=== PATIENT | female | born 1950 | race Caucasian/White ===

== ENCOUNTER → 2023-05-19 10:11 | Outpatient (BNVA) | payer OTHER, MEDICAID, SELFPAY | PROVIDERS: Visit Provider Physician Assistant ==

== ENCOUNTER 2023-06-20 09:28 | Outpatient (AMB) | payer OTHER, MEDICAID, SELFPAY ==
--- NOTE | 2023-06-20 09:45 | A.SPINEOV_ITS ---
Intake Intake Visit Reasons: lumbar stenosis Intake Note: Ms. Garner is here today c/o low back pain. Brought MRI disc. 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 This is a 73-year-old female who presents to the office today for evaluation of a chronic low back pain going down her right leg into her outer thigh and her calf. She had a pre vious L4-5 decompression with facet screws done by Dr. Rashida lowery in 2012. The situation was complicated by a postoperative infection for which she was on long-term antibiotics. She eventually recovered from that and did reasonably well in terms of her leg pain and walking until about a year ago when she started developed chronic back pain going down into her right buttock, right lateral thigh and occasionally into her calf. She has been using oxycodone and Advil to get through. Any standing and walking is terribly painful will make her have to sit down. She has also been getting the pain at night however as well. She had an MRI showing degenerative disc disease and new right foraminal stenosis at L4. She was sent to us today for evaluation. She has not had any cortisone injections jet or any physical therapy. PMH: She is a diabetic, she is not sure why her A1c is, she believes it could be as high as 9. She has a history of back surgery as mentioned above, she also had a total knee replacement and that also got infected. She had a shoulder arthroscopy. She had a nonobstructive AL about 25-30 years ago which she was told was related distress but she did not require any intervention. The patient has anxiety, depression, GERD, high cholesterol Social hx: She is a nonsmoker Medications: Metformin, BuSpar, sertraline, omeprazole, inhaler, nasal spray Advil aspirin atorvastatin fluticasone lisinopril nystatin powder, propranolol, sertraline, sumatriptan, tizanidine Allergies: Allergy to Bactrim gives her GI upset, Augmentin and Ceftin Physical exam: Morbidly obese no acute distress she is awake alert oriented, she has difficulty standing up secondary to pain will hold her hand over her back when she is walking down the hallway, motor examination is intact, reflexes diminished bilaterally at the Achilles and the patella Imaging review: She had a lumbar MRI done in March of 2023 [facility] which shows multilevel degenerative disc disease, however she has a spondylolisthesis at L4-5 with right L4 foraminal narrowing. There is some moderate stenosis above at L3-4. There was a severely collapsed disc at L5-S1. We did standing flexion-extension x-rays here in the office today this showed transition from a grade 1 to a grade 2 or worse spondylolisthesis at L4-5 with standing. Impression: 73-year-old female presents to the office today with history of previous L4-5 decompression [place] [address] Field who has now developed a significant instability at L4-5 seen on x-rays, with MRI also showing foraminal stenosis at L4. Typically this is something that Dr. Schaeffer would treat with an L4-5 oblique lumbar interbody fusion. Although she has not done conservative treatment at this time, I do not think there is any value to this given the significant amount of instability we see. Before we can consider surgery however, she has a strong history of infections and she is not sure for diabetes is controlled at all and obviously we cannot bring her to the operating room until these things are clarified. I told her call her primary care physician Dr. Pastor office to have a preoperative evaluation and have her A1c checked. In the interim I will show her him images to Dr. Schaeffer and get back to her with the final surgical plan. Thank you for allowing us to care for your patient. The total time spent with this visit with this patient was 60 minutes reviewing history, physical exam, lumbar imaging review, and implementation of treatment plan or further diagnostic testing Joaquim Schaeffer MD,PhD [facility] Orders: Orders XR lumbar spine 4V min Today M54.16 - Radiculopathy, lumbar region Coding Level of Care Code New Pt Level 5 (56713) Diagnoses Lumbar radiculopathy M54.16
== END 2023-06-20 10:55 | disposition home or self-care (01) ==
PROVIDERS: PCP Family Medicine; Referring Provider Family Medicine; Visit Provider Physician Assistant
DX: M54.16 Radiculopathy, lumbar region (principal)
CPT/HCPCS: 99205

== ENCOUNTER 2023-06-20 09:28 | Outpatient (REF) | payer OTHER, MEDICAID, SELFPAY ==
--- NOTE | ~2023-06-20 | XR_ITS ---
EXAMINATION: XR LUMBOSACRAL SPINE WITH OBLIQUES CLINICAL INFORMATION: Lumbar radiculopathy. COMPARISON: None available. TECHNIQUE: AP, both oblique, and lateral views of the lumbar spine. Lateral view of the lumbosacral junction. FINDINGS: There is bony demineralization. At L4-L5, there is a 1.3 cm anterolisthesis. There are pedicular screws applied to the L5 posterior elements. There is marked disc space narrowing at L5-S1. No acute fracture is seen. The posterior elements are intact. The paravertebral soft tissues are unremarkable. XR/XR lumbar spine 4V min IMPRESSION: There is marked degenerative disc disease at L4-L5 and L5-S1. At L4-L5, there is a 1.3 cm anterolisthesis. Intact bilateral L5 pedicular screws are noted, without failure or loosening seen.
== END 2023-06-20 09:29 | disposition home or self-care (01) ==
LOC: HO.HOSX 09:28
PROVIDERS: PCP Family Medicine; Referring Provider Family Medicine; Visit Provider Physician Assistant
DX: M54.16 Radiculopathy, lumbar region (principal)
CPT/HCPCS: 72110

== ENCOUNTER 2023-10-21 15:08 | Outpatient (AMB) | payer OTHER, MEDICAID, SELFPAY ==
--- NOTE | 2023-10-21 15:13 | HO.SPINEOV ---
Intake Intake Visit Reasons: Follow up A1c Intake Note: Ms. Garner is here today to follow up Re: A1c. 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 This 73-year-old female who was previously seen by Joaquim Tinoco. She suffer from chronic low back pain and right lumbar radiculopathy. Imaging reviews a grade 2-3 L4-5 spondylolisthesis for which we offered her an oblique lumbar interbody fusion with a condition that her A1c needed to be controlled. Today she states her A1c is reduced to 7.9, which is a significant improvement from the high 9th where she was in. We scheduled surgery for 01/12/2024. This will give e time for the A1c to further decline. I described procedure, complications and answered the patient's questions. I spent 30 minutes in this consult to review imaging and discussing plan of care. Jh Schaeffer MD, PhD [facility] Trained Neurosurgeon Director, [facility] Coding Level of Care Code Est Pt Level 4 (63557) Diagnoses Acquired spondylolisthesis of lumbosacral region M43.17
== END 2023-10-21 16:02 | disposition home or self-care (01) ==
PROVIDERS: Visit Provider Neurological Surgery
DX: M43.17 Spondylolisthesis, lumbosacral region (principal)
CPT/HCPCS: 99214

== ENCOUNTER → 2023-10-21 15:08 | Outpatient (BNVA) | payer OTHER, MEDICAID, SELFPAY | PROVIDERS: PCP Family Medicine; Visit Provider Neurological Surgery ==

== ENCOUNTER → 2023-12-29 13:20 | Outpatient (BNV) | payer OTHER, MEDICAID, SELFPAY | PROVIDERS: Visit Provider Internal Medicine | DX: R94.31 Abnormal electrocardiogram [ECG] [EKG] (principal) | CPT/HCPCS: 93010 ==

== ENCOUNTER 2024-01-13 08:24 | Inpatient (IN) | payer OTHER, SELFPAY ==
--- NOTE | 2023-12-29 | ECG_ITS ---
Test Reason : preop Blood Pressure : / mmHG Vent. Rate : 065 BPM Atrial Rate : 065 BPM P-R Int : 178 ms QRS Dur : 068 ms QT Int : 400 ms P-R-T Axes : 013 -09 037 degrees QTc Int : 416 ms Normal sinus rhythm Cannot rule out Anterior infarct , age undetermined Abnormal ECG No previous ECGs available Referred By: Marcela Butts Electronically Signed By:DEBBIE DE ANDA
[2023-12-29 12:17] VITALS: BP 120/57; PULSE 64; RESP 20; O2SAT 97; BMI 42.6
--- NOTE | 2023-12-29 12:31 | P.CONAN_ITS ---
Documented by User: Marcela Butts NP 01/01/24 13:24 HPI - Anesthesia Eval Consult details Narrative: 73yo F for L4-5 Oblique Lumbar Interbody Fusion, 01/13/24 No recent illness No CP/SOB with very limited activity GERD. ppi prn, only takes couple times a month DM. FBS ~ 130s AR in 40's. No problems since. Sees cardiology prn only. Last visit 01/2023. Opiates daily Propranolol for migraine, no htn. PMFSH Active Problems Active Problems: All Active Problems (Updated 12/29/23 @ 12:08 by Nessa Liz RN) Acquired spondylolisthesis of lumbosacral region (Acute) Diabetes (Acute) Lumbar radiculopathy (Acute) Past Medical History Medical History (Updated 12/29/23 @ 12:59 by Nessa Liz RN) Bronchitis Fibromyalgia Arthritis Migraine Anxiety GERD (gastroesophageal reflux disease) Depression Elevated cholesterol Myocardial infarction Right lumbar radiculopathy Chronic low back pain Diabetes Surgical History Surgical History (Updated 12/29/23 @ 12:10 by Nessa Liz RN) Hx of tonsillectomy H/O colonoscopy Hx of cholecystectomy History of Hx of shoulder surgery Hx of total knee replacement Hx of decompressive lumbar laminectomy Social History Social History Household Members Other:: son Are you a primary nursing care attendant to a significant other at home: No Do you presently have visiting nurse or other home services: No Patient Tobacco Use Status: Never used Tobacco Use of substances other than those prescribed or required for medical reasons: No Have you been hit, kicked, punched, or otherwise hurt by someone within the past year? If so, by whom?: No Are you DNR?: No Advance Directives: No Advance Directives Information Provided: Yes Advance Directives on File: No Recently lost weight without trying: No Eating poorly because of decreased appetite: No Nutrition Risks: No Nutritional Risk Poor oral hygiene: No (missing molars-one upper and one lower left) Meds Allergies Allergy/AdvReac Type Severity Reaction Status Date / Time amoxicillin [From Augmentin] Allergy Intermediate Gastrointestinal Verified 12/29/23 12:11 Upset cefuroxime [From Ceftin] Allergy Intermediate Gastrointestinal Verified 12/29/23 12:11 Upset clavulanic acid Allergy Intermediate Gastrointestinal Verified 12/29/23 12:11 [From Augmentin] Upset vancomycin Allergy Nausea and Verified 01/13/24 09:25 Vomiting sulfamethoxazole AdvReac Intermediate Gastrointestinal Verified 12/26/23 10:19 [From Bactrim] Upset trimethoprim [From Bactrim] AdvReac Intermediate Gastrointestinal Verified 12/26/23 10:19 Upset Home Medications Medication Instructions Recorded Confirmed Last Taken Type albuterol sulfate 90 mcg/actuation 1 - 2 puff inhalation Q4-6H PRN 12/26/23 12/26/23 01/12/24 History aerosol inhaler Shortness Of Breath Or Wheezing atorvastatin 20 mg tablet 20 mg PO BEDTIME 12/26/23 12/29/23 01/12/24 History buspirone 15 mg tablet 15 mg PO TID 12/26/23 12/29/23 01/12/24 History fluticasone propionate 50 2 spray intranasal DAILY PRN Nasal 12/26/23 12/26/23 01/12/24 History mcg/actuation nasal Congestion spray,suspension insulin glargine 100 unit/mL (3 19 unit subcut QAM 12/26/23 12/29/23 01/13/24 History mL) subcutaneous pen (Lantus Solostar U-100 Insulin) metformin 1,000 mg tablet 1,000 mg PO BID 12/26/23 12/29/23 01/12/24 History nystatin 100,000 unit/gram topical 1 appl topical BID-TID 12/26/23 12/26/23 01/11/24 History powder (Nystop) omeprazole 20 mg capsule,delayed 20 mg PO DAILY PRN Acid Reflux 12/26/23 12/29/23 01/13/24 History release propranolol 40 mg tablet 40 mg PO BID 12/26/23 12/29/23 01/13/24 History sertraline 100 mg tablet 100 mg PO QPM 12/26/23 12/29/23 01/12/24 History ibuprofen 200 mg tablet (Advil) 600 mg PO Q6H PRN Pain 12/29/23 12/29/23 01/06/24 History oxycodone 5 mg tablet 5 mg PO BID 12/29/23 12/29/23 01/13/24 History Exam Height,Weight and Vital Signs: Height 4 ft 11 in Weight 95.708 kg Last Vital Signs Pulse 64 12/29/23 12:17 Resp 20 12/29/23 12:17 BP 120/57 L 12/29/23 12:17 Pulse Ox 97 12/29/23 12:17 O2 Del Method Room Air 12/29/23 12:17 Pertinent Lab Results Pertinent Lab Results: Lab Results 12/29/23 12/29/23 Range/Units 13:15 13:20 WBC 8.1 (4.8-10.8) X10*3/uL RBC 4.36 (4.20-5.50) X10*6/uL Hgb 12.9 (12.0-16.0) g/dl Hct 39.4 (37.0-47.0) % MCV 90.4 (80.0-98.0) fL MCH 29.6 (27.0-33.0) pg MCHC 32.7 (31.0-35.0) g/dl RDW 13.0 (11.0-16.0) % Plt Count 215 (160-400) X10*3/uL MPV 9.3 L (9.4-12.3) fL Absolute Nucleated RBC 0.000 (0.0-0.012) X10*3/uL Nucleated RBC % (auto) 0.0 (0.0-0.2) /100WBC Sodium 136 (135-145) mmol/L Potassium 5.3 H (3.3-5.1) mmol/L Chloride 106 (96-108) mmol/L Carbon Dioxide 25 (22-29) mmol/L Anion Gap 10 L (12-20) BUN 20 H (9-16) mg/dL Creatinine 0.90 (0.5-1.4) mg/dL Estim Creat Clear Calc 58.1 Estimated GFR > 60 Random Glucose 209 H (60-115) mg/dL Estimat Average Glucose 169 mg/dL Hemoglobin A1c % 7.5 H (<6.0) % Calcium 9.3 (8.4-10.2) mg/dL Blood Type A Positive Antibody Screen NEGATIVE Narrative Narrative: EKG 12/2023 Vent. Rate : 065 BPM Atrial Rate : 065 BPM P-R Int : 178 ms QRS Dur : 068 ms QT Int : 400 ms P-R-T Axes : 013 -09 037 degrees QTc Int : 416 ms Normal sinus rhythm Cannot rule out Anterior infarct , age undetermined Abnormal ECG No previous ECGs available Airway Mallampati Class: III TM Dist: >3cm Neck ROM: Limited Loose/Missing/Broken Teeth: Yes (missing molars) Heart: RRR Lungs: CTAB Assessment and Plan Assessment Anesthesia Assessment: Anesthesia Plan Discussed and PAT Visit Documented by User: Yimi Jewell MD 01/13/24 09:33 PMF Past Medical History Medical History (Updated 12/29/23 @ 12:59 by Nessa Liz RN) Bronchitis Fibromyalgia Arthritis Migraine Anxiety GERD (gastroesophageal reflux disease) Depression Elevated cholesterol Myocardial infarction Right lumbar radiculopathy Chronic low back pain Diabetes Functional capacity: wheelchair bound Family History Family history of problems with anesthesia: No Surgical History Surgical History (Updated 12/29/23 @ 12:10 by Nessa Liz RN) Hx of tonsillectomy H/O colonoscopy Hx of cholecystectomy History of Hx of shoulder surgery Hx of total knee replacement Hx of decompressive lumbar laminectomy History of Problems with Anesthesia: No Social History Social History Household Members Other:: son Are you a primary nursing care attendant to a significant other at home: No Do you presently have visiting nurse or other home services: No Patient Tobacco Use Status: Never used Tobacco Use of substances other than those prescribed or required for medical reasons: No Have you been hit, kicked, punched, or otherwise hurt by someone within the past year? If so, by whom?: No Are you DNR?: No Advance Directives: No Advance Directives Information Provided: Yes Advance Directives on File: No Recently lost weight without trying: No Eating poorly because of decreased appetite: No Nutrition Risks: No Nutritional Risk Poor oral hygiene: No (missing molars-one upper and one lower left) Meds Allergies Allergy/AdvReac Type Severity Reaction Status Date / Time amoxicillin [From Augmentin] Allergy Intermediate Gastrointestinal Verified 12/29/23 12:11 Upset cefuroxime [From Ceftin] Allergy Intermediate Gastrointestinal Verified 12/29/23 12:11 Upset clavulanic acid Allergy Intermediate Gastrointestinal Verified 12/29/23 12:11 [From Augmentin] Upset vancomycin Allergy Nausea and Verified 01/13/24 09:25 Vomiting sulfamethoxazole AdvReac Intermediate Gastrointestinal Verified 12/26/23 10:19 [From Bactrim] Upset trimethoprim [From Bactrim] AdvReac Intermediate Gastrointestinal Verified 12/26/23 10:19 Upset Home Medications Medication Instructions Recorded Confirmed Last Taken Type albuterol sulfate 90 mcg/actuation 1 - 2 puff inhalation Q4-6H PRN 12/26/23 12/26/23 01/12/24 History aerosol inhaler Shortness Of Breath Or Wheezing atorvastatin 20 mg tablet 20 mg PO BEDTIME 12/26/23 12/29/23 01/12/24 History buspirone 15 mg tablet 15 mg PO TID 12/26/23 12/29/23 01/12/24 History fluticasone propionate 50 2 spray intranasal DAILY PRN Nasal 12/26/23 12/26/23 01/12/24 History mcg/actuation nasal Congestion spray,suspension insulin glargine 100 unit/mL (3 19 unit subcut QAM 12/26/23 12/29/23 01/13/24 History mL) subcutaneous pen (Lantus Solostar U-100 Insulin) metformin 1,000 mg tablet 1,000 mg PO BID 12/26/23 12/29/23 01/12/24 History nystatin 100,000 unit/gram topical 1 appl topical BID-TID 12/26/23 12/26/23 01/11/24 History powder (Nystop) omeprazole 20 mg capsule,delayed 20 mg PO DAILY PRN Acid Reflux 12/26/23 12/29/23 01/13/24 History release propranolol 40 mg tablet 40 mg PO BID 12/26/23 12/29/23 01/13/24 History sertraline 100 mg tablet 100 mg PO QPM 12/26/23 12/29/23 01/12/24 History ibuprofen 200 mg tablet (Advil) 600 mg PO Q6H PRN Pain 12/29/23 12/29/23 01/06/24 History oxycodone 5 mg tablet 5 mg PO BID 12/29/23 12/29/23 01/13/24 History Exam Airway Mallampati Class: III TM Dist: <=3cm Neck ROM: Full Loose/Missing/Broken Teeth: No Assessment and Plan Final Anesthetic Review Family History of Problems with Anesthesia: No History of Problems with Anesthesia: No NPO: Yes ASA Class: III Final Preanesthetic Review: No Changes in Pt Med Stat, Meds/Allgs Chart Reviewed, Consent Obtained/Reviewed and Anes Risks/Benef Reviewed Patient Risk: Intermediate Procedure Risk: Intermediate Anesthetic Plan Anesthetic Plan: GA Disposition: Standard PACU
[2023-12-29 13:35] LABS: Hematocrit 39.4 % (37.0-47.0); Hemoglobin 12.9 g/dl (12.0-16.0); Mean Corpuscular HGB Conc 32.7 g/dl (31.0-35.0); Mean Corpuscular Hemoglobin 29.6 pg (27.0-33.0); Mean Corpuscular Volume 90.4 fL (80.0-98.0); Mean Platelet Volume 9.3 fL (9.4-12.3); Platelet Count 215 X10*3/uL (160-400); Red Blood Count 4.36 X10*6/uL (4.20-5.50); White Blood Count 8.1 X10*3/uL (4.8-10.8)
[2023-12-29 14:18] LABS: Anion Gap 10 (12-20); Blood Urea Nitrogen 20 mg/dL (9-16); Calcium 9.3 mg/dL (8.4-10.2); Carbon Dioxide 25 mmol/L (22-29); Chloride 106 mmol/L (96-108); Creatinine Clr Calc Pharmacy 58.1; Estimated Glomerular Filt Rate > 60; Glucose Random 209 mg/dL (60-115); Potassium 5.3 mmol/L (3.3-5.1); Sodium 136 mmol/L (135-145)
[2023-12-29 14:51] LABS: Estimated Average Glucose 169 mg/dL; Hemoglobin A1c % 7.5 % (<6.0)
[2024-01-13] VITALS (20 sets, daily range): BP systolic 121–164; BP diastolic 60–99; PULSE 68–83; RESP 10–20; TEMP 36.1–36.6; O2SAT 97–100; BMI 42.2; BMI 42.4
--- NOTE | ~2024-01-13 | FL_ITS ---
EXAMINATION: XR FLUOROSCOPY WITH IMAGES CLINICAL INFORMATION: L4-L5 oblique lumbar interbody fusion. COMPARISON: Lumbar spine radiographs 06/20/2023. TECHNIQUE: Fluoroscopy Supervised By: Dr. Jh Schaeffer. Fluoroscopy Time: 1.58 min. Cumulative Dose: 142.26 mGy. DAP: 45.907 Gycm2. Images: 4. FINDINGS: Progressive imaging demonstrates posterior pedicular screws at what appears to be L4-L5 with an interbody device. Smaller pedicular screws at L5 remain in place. Please see Dr. Jh Schaeffer' report for full details. FL/FL guidance in OR IMPRESSION: Fluoroscopy and spot films provided during lumbar surgery.
--- NOTE | 2024-01-13 06:59 | MHC.SHP ---
Pre-Procedural Eval Section A - 24 Hr Update-Section A only Date of Service: 01/13/24 The patient is an INPATIENT: No Changes since office visit: No Cold of Flu in the past 2 weeks, No New Medical Problems, No Changes in Medication and No Patient answered all questions The patient has been examined within 24 hours of the surgical procedure. The History & Physical has been completed within 30 days and I have reviewed it.: No Section B - Complete if H&P > 30 days Chief Complaint: Spondylolisthesis, lumbosacral region Allergies: Allergies Allergy/AdvReac Type Severity Reaction Status Date / Time amoxicillin [From Augmentin] Allergy Intermediate Gastrointestinal Verified 12/29/23 12:11 Upset cefuroxime [From Ceftin] Allergy Intermediate Gastrointestinal Verified 12/29/23 12:11 Upset clavulanic acid Allergy Intermediate Gastrointestinal Verified 12/29/23 12:11 [From Augmentin] Upset sulfamethoxazole AdvReac Intermediate Gastrointestinal Verified 12/26/23 10:19 [From Bactrim] Upset trimethoprim [From Bactrim] AdvReac Intermediate Gastrointestinal Verified 12/26/23 10:19 Upset Review of Systems Sugical H&P ROS: Negative: Constitution, Cardiovascular, Respiratory, Neurological, Psychiatric, Hem-Onc, Allergic/Immunologic, Gastrointestinal, Genitourinary, Musculoskeletal, Integumentary, Endocrine and Eyes/Ears/Nose/Throat Exam Surgical H&P Exam: Not Evaluated: HEENT, Not Evaluated: Heart, Not Evaluated: Lungs, Not Evaluated: Extremities, Not Evaluated: Abdomen, Not Evaluated: Skin and Not Evaluated: Neurological Plan Diagnosis/Plan: Unchanged L4-5 oblique lumbar interbody fusion Time Spent With Patient Time: Total time managing care of this patient today _6___ minutes.
[2024-01-13 08:57] LABS: Glucose, Whole Blood 156 mg/dL (60-115)
[2024-01-13] MEDS: Gabapentin 300 MG CAPSULE PO (09:02)
[2024-01-13] MEDS: methocarbamoL 750 MG TABLET PO ×2 (09:03→18:48)
[2024-01-13] MEDS: vancomycin HCL 1,500 MG in 0.9 % Sodium Chloride 500 ML 333.33 MG IV (09:05)
[2024-01-13] MEDS: Lactated Ringers 1,000 ML 50 ML IVCONT (09:05)
--- NOTE | 2024-01-13 09:20 | PC.NURSE ---
Vancomycin 1500mg IV running for approximately 15min. Patient started to cough associated with dry heaving. patient reports being nauseous, and i feel like i am burning . face is flushed. cold wash clothe applied to forehead. Dr. Jewell Anesthesiaologist at bedside. JOIR Burris and Dr. Schaeffer also notified of reaction via [employer].
[2024-01-13] MEDS: diphenhydrAMINE HCL 50 MG/ML VIAL 12.5 MG IVPUSH (09:32)
[2024-01-13] MEDS: ondansetron HCL 4 MG/2 ML VIAL IVPUSH (09:41)
[2024-01-13] MEDS: dexAMETHasone sod phosphate 4 MG/ML VIAL IVPUSH (09:41)
--- NOTE | 2024-01-13 09:52 | PHA.MEDREC ---
Pharmacy Consult ? Medication Reconciliation RN has completed the medication reconciliation, PHARMACY REVIEWED.
--- NOTE | 2024-01-13 13:56 | W.PM.OPN ---
Operative Note Operative Note Date of Service: 01/13/24 Narrative: Preop Diagnosis: 1.) Lumbar spondylolisthesis Procedure: L4-5 discectomy, arthrodesis and implantation cage through an anterolateral, retroperitoneal approach; posterior instrumented fusion L4-5; allograft Consent Informed Consent was obtained for this operation. I have explained the nature, purpose and benefits of the operation. I have discussed the risks and benefit of the operation including possible complications or adverse events with patient/family. Alternative(s) were discussed with the patient with their relative benefits and risks as well as the consequences of not accepting the operation were included in obtaining consent. Surgeon: SCARLETT JIMENEZ MD, PHD Procedure Assisted By: None Description of Procedure The patient had a previous decompression done with placement of facet screws in another institution. The hardware failed and she developed a grade 2-3 spondylolisthesis with back pain and neurogenic claudication. The patient was offered an oblique lumbar interbody fusion L4-5. The procedure complications were explained. The patient was consented. The patient was brought to the operating room and endotracheally intubated. The patient was turned in a lateral position with the left side up. Prep and drape was done followed by timeout. A small incision was made in the left lower abdominal quadrant. The muscle fascia was opened after which the 3 muscle layer was split to enter the retroperitoneal space. Dilators were docked in the anterior one third of the L4-5 disc space followed by a retractor. The retractor was opened. The L4-5 disc space was exposed. An annulotomy was done after which an elevator Holden was used to release the disc material from its endplates and to perforate the contralateral side. A partial discectomy was done. An 8 and 10 mm height trial implant was inserted. The discectomy was completed. The endplates were prepared. An 10 x 45 mm with 0 degree lordosis 4 web cage filled with allograft was inserted into the disc space under fluoroscopic guidance. This resulted in reduction of the spondylolisthesis. The retractor was removed. Hemostasis was done. The incision was closed in 2 layers. Steri-Strips used to approximate incision. An OpSite with Tegaderm was used to cover the incision. This marked first part of the procedure. The patient was turned prone on the Clark spine table. 2C arms were installed for fluoroscopy. Prep and drape was done followed by a second timeout. 2 paramedian incisions were made lateral from the L4 and L5 pedicles. The muscle fascia was opened after which the muscle layer was split bluntly to expose the posterolateral gutter. The following steps were taken. A pediguard tap was used to create a transpedicular trajectory into the vertebral body. A K wire was placed. A specially designed instrument was advanced over the K wire to decorticate the posterolateral gutter in preparation for the posterolateral fusion. A pedicle screw was advanced over the K wire and the K wire was removed. The steps were done for the bilateral L4 and L5 pedicles. A total of 4 screws were placed with a diameter of 6.5 x 45 mm in the bilateral L4 pedicles and 6.5 x 40 mm in the bilateral L5 pedicles. The pedicle screws were connected with 40 mm merissa bilaterally and locked down with locking caps. The extension towers were removed. The posterolateral gutter was filled with allograft to complete the posterolateral L4-5 fusion Hemostasis was done and the incision was closed in 2 layers. Steri-Strips were used to approximate the incision. An OpSite were taken and was used to cover the incision. All sponge and needle counts were correct. Patient was extubated and transferred in stable is to recovery room. Anesthesia: General Estimated Blood Loss (ml): 40 Duration of Surgery: 2 hours Complications: None Postoperative Plan: Admit to inpatient for observation
[2024-01-13 14:43] LABS: Glucose, Whole Blood 239 mg/dL (60-115)
[2024-01-13] MEDS: fentaNYL citrate/PF 100 MCG/2 ML VIAL 50 MCG IVPUSH ×4 (15:10→16:35)
[2024-01-13] MEDS: oxyCODONE HCl Immed Release 5 MG TABLET PO (17:17)
[2024-01-13 18:30] LABS: Glucose, Whole Blood 264 mg/dL (60-115)
[2024-01-13] MEDS: Insulin Lispro 100 UNIT/ML 3 ML VIAL SUBCUT ×2 (18:48→21:44)
[2024-01-13] MEDS: busPIRone HCl 5 MG TABLET 15 MG PO ×2 (18:48→21:42)
[2024-01-13] MEDS: HYDROmorphone HCl 1 MG/ML SYRINGE IVPUSH (19:43)
[2024-01-13 20:06] LABS: Glucose, Whole Blood 289 mg/dL (60-115)
[2024-01-13] MEDS: Acetaminophen 1,000 MG/100 ML PIGGYBACK 400 MG IV (21:40)
[2024-01-13] MEDS: Docusate Sodium 100 MG CAPSULE PO (21:41)
[2024-01-13] MEDS: metFORMIN HCl 1,000 MG TABLET 1000 MG PO (21:41)
[2024-01-13] MEDS: Propranolol HCL 40 MG TABLET PO (21:41)
[2024-01-13] MEDS: Ketorolac Tromethamine 15 MG/ML VIAL IVPUSH (21:41)
[2024-01-13] MEDS: Sertraline HCL 100 MG TABLET PO (21:42)
[2024-01-13] MEDS: Atorvastatin Calcium 20 MG TABLET PO (21:42)
[2024-01-13] MEDS: 0.9 % Sodium Chloride 1,000 ML 75 ML IVCONT (22:15)
[2024-01-14] MEDS: HYDROmorphone HCl 1 MG/ML SYRINGE IVPUSH (00:45)
[2024-01-14] MEDS: Clindamycin Phosphate/D5W 900 MG/50 ML PIGGYBACK 50 MG IV (00:47)
[2024-01-14] MEDS: Acetaminophen 1,000 MG/100 ML PIGGYBACK 400 MG IV ×2 (02:26→07:10)
[2024-01-14] MEDS: Ketorolac Tromethamine 15 MG/ML VIAL IVPUSH ×2 (02:27→07:10)
[2024-01-14 03:47] VITALS: BP 96/60; PULSE 74; RESP 18; TEMP 36.2; O2SAT 93
--- NOTE | 2024-01-14 06:30 | PC.NURSE ---
pt out of bed x2 to commode last night and she refused to ambulate to bathroom
[2024-01-14] MEDS: oxyCODONE HCl Immed Release 5 MG TABLET 10 MG PO ×3 (07:09→14:39)
[2024-01-14] MEDS: Docusate Sodium 100 MG CAPSULE PO (07:09)
[2024-01-14] MEDS: metFORMIN HCl 1,000 MG TABLET 1000 MG PO (07:10)
[2024-01-14] MEDS: busPIRone HCl 5 MG TABLET 15 MG PO ×2 (07:10→14:38)
[2024-01-14 07:47] LABS: Glucose, Whole Blood 242 mg/dL (60-115)
[2024-01-14 07:49] VITALS: BP 94/45; PULSE 67; RESP 17; TEMP 36.7; O2SAT 92
[2024-01-14 08:10] LABS: Creatinine Clr Calc Pharmacy 41.4; Estimated Glomerular Filt Rate 42
[2024-01-14] MEDS: Insulin Lispro 100 UNIT/ML 3 ML VIAL SUBCUT ×2 (08:18→11:37)
--- NOTE | 2024-01-14 09:13 | PM.DS ---
DS: Providers Provider Date of Service: 01/14/24 Date of admission: 01/13/24 08:24 Primary care physician: Norris Bee DS: Summary Time Attestation Discharge coordination time: Less than 30 minutes Quality: Safe Use of Opioids Does Pt have an Active Cancer Diagnosis on the Problem List?: No Quality: Stroke Does the patient have a stroke diagnosis?: No Physical Exam Vital Signs: Vital Signs: Last Vital Signs Temp 98.1 F 01/14/24 07:49 Pulse 67 01/14/24 07:49 Resp 17 01/14/24 07:49 BP 94/45 L 01/14/24 07:49 Pulse Ox 92 01/14/24 07:49 O2 Del Method Room Air 01/14/24 07:49 O2 Flow Rate 2 01/13/24 18:18 BMI result Body Mass Index 42.4 DS: Data Data Completed and Pending Labs on day of discharge: Laboratory Results - last 24 hr 01/13/24 01/13/24 01/13/24 14:31 18:23 20:01 Hold Purple Top Creatinine Estim Creat Clear Calc Estimated GFR POC Glucose 239 H 264 H 289 H 01/14/24 01/14/24 06:56 07:25 Hold Purple Top SEE NOTE Creatinine 1.26 Estim Creat Clear Calc 41.4 Estimated GFR 42 POC Glucose 242 H Discharge Plan Discharge Anticipated Discharge Date/Time: 01/14/24 09:13 Patient Disposition: Xfer Inpatient Rehab Fac Discharge Diagnosis: s/p L4-5 OLIF Referrals: Norris Bee [Other] - 1 Week Discharge Medications: Continued atorvastatin 20 mg tablet 20 mg PO BEDTIME sertraline 100 mg tablet 100 mg PO QPM Rx Instructions: takes between 1400 & 1500 propranolol 40 mg tablet 40 mg PO BID metformin 1,000 mg tablet 1,000 mg PO BID omeprazole 20 mg capsule,delayed release(DR/EC) 20 mg PO DAILY PRN (Reason: Acid Reflux) Patient Comments: 1/2 dose at 1am nystatin [Nystop] 100,000 unit/gram powder 1 appl topical BID-TID albuterol sulfate 90 mcg/actuation HFA aerosol inhaler 1 - 2 puff INHALATION Q4-6H PRN (Reason: Shortness Of Breath Or Wheezing) fluticasone propionate 50 mcg/actuation spray,suspension 2 spray intranasal DAILY PRN (Reason: Nasal Congestion) buspirone 15 mg tablet 15 mg PO TID insulin glargine [Lantus Solostar U-100 Insulin] 100 unit/mL (3 mL) insulin pen 19 unit subcut QAM Rx Instructions: takes at midnight or 0100 ibuprofen [Advil] 200 mg Tablet 600 mg PO Q6H PRN (Reason: Pain) Held oxycodone 5 mg tablet 5 mg PO BID Hold Instructions: Resume on 01/14/24. Until Rx written by us is complete Discharge Orders: Discharge Order (Routine); Ordered 01/14/24 Ordered By: Sebastian Paige Diet: Advance to usual diet Activity on Discharge: As tolerated Stand Alone Forms: Patient Portal Discharge page Activity Restrictions/Additional Instructions: After your spinal surgery we ask you to observe the following restrictions/guidelines: Activity: With lumbar fusion surgery it is normal to have days in the first couple of weeks where you have increased leg pain. This usually lasts 1-2 days and self resolves with the continuation of medication. Attempt to stay mobile and continue activity as tolerated. It is normal to feel some discomfort as you increase your activity, but that will improve with time. We ask you avoid heavy lifting or activities that cause pain. As a general rule, 8lbs is a safe limit for lifting right after surgery. Walk as much as you feel comfortable but not to exhaustion. You will feel extra tired the first few days after surgery. Stay well hydrated. It is OK to walk up and down stairs You may return to driving when you are off narcotics (such as vicodin, oxycodone, dilaudid, etc), and you are back to normal functional capacity. If you have any concerns please check with office before driving. Return to work is specific to each patient and each surgery, so please speak with your doctor/PA at first follow up. Please bring paperwork such as FMLA at that time if you need it filled out. Medications: It is recommended that you take Tylenol 500 mg every 4 hours for the 1st week postoperatively, ?alongside ibuprofen 600 mg every 8 hours. We will give you a short supply of narcotics after surgery (usually one weeks worth). ??Please use this for breakthrough pain that is refractory to the Tylenol ibuprofen. If you need more please call the office but do not use more than prescribed. You will need to give our office 48 hours notice if you need narcotics refilled and we do not fill narcotics on weekends or evenings. If you are on a narcotic, it is a good idea to take a stool softener such as colace or senna to avoid constipation If you take blood thinner such as aspirin, Plavix, Coumadin, Effient, Eliquis etc for conditions such as Afib, DVT, Pulmonary embolus, coronary disease, stents etc please speak with your surgeon about specific details as to when you can resume these medications. You can resume NSAIDs on post op day 1 (eg: Motrin, Naproxen, etc). Follow up: Please call the office, , after surgery to arrange a 3 week follow up for wound check. Wound Care: You may remove your dressing on the first day after surgery. ?You may ?leave open to air. Please do not remove the steri strips underneath. they will fall off on their own in one week. IT IS NORMAL FOR THE WOUND TO OOZE OR BE BLOODY FOR A FEW DAYS AFTER SURGERY. ?IF THIS HAPPENS JUST PLACE NEW DRESSING OVER IT TO AVOID STAINING CLOTHES. You may shower on post op day # 1 We ask that you do not let the water soak the wound. If it does get wet, just towel dry lightly. Please do not scrub your incision or place any type of chemical/ointment on the wound. No tub baths, pools or jacuzzis for one month. If you have any leaking or redness from your wound, or fevers, please call office Care Plan Goals: Return to normal activity as tolerated. Health Concerns: None. Plan of Treatment: Follow-up in clinic in 2-3 weeks. Assessment: POD: 1 Procedure: L4-5 OLIF Patient reports she is sitting up and moving around the bed okay, and using the bedside commode. She is having some difficulty with ambulation needs assistance. She does feel her symptoms are much better than pre-operatively. She endorses good relief with pain medication. She is voiding well, and tolerating diet. Afebrile, vital signs stable. No new neurological deficits. Full strength 5/5 in her lower extremities. Anterolateral and Back dressings have some staining without signs of hematoma. No active sanguineous drainage. Plan: Patient meets criteria to be transferred to an inpatient rehab facility. She reports that this is what she would like to do as she currently lives alone at home does not feel as though she can care for herself properly while she still feels somewhat weak from surgery. I wrote her a paper prescription for oxycodone and provided it to her nurse. She is awaiting PT eval, and assuming they agree with this assessment she may be transferred [facility] a [facility]. I discussed this plan with the attending neurosurgeon who is in agreement.
--- NOTE | 2024-01-14 09:19 | HO.NEUROPN_ITS ---
Neurosurgery Operative Note Date of Service: 01/14/24 Narrative: POD: 1 Procedure: L4-5 OLIF Patient reports she is sitting up and moving around the bed okay, and using the bedside commode. She is having some difficulty with ambulation needs assistance. She does feel her symptoms are much better than pre-operatively. She endorses good relief with pain medication. She is voiding well, and tolerating diet. Afebrile, vital signs stable. No new neurological deficits. Full strength 5/5 in her lower extremities. Anterolateral and Back dressings have some staining without signs of hematoma. No active sanguineous drainage. Plan: Patient meets criteria to be transferred to an inpatient rehab facility. She reports that this is what she would like to do as she currently lives alone at home does not feel as though she can care for herself properly while she still feels somewhat weak from surgery. I wrote her a paper prescription for oxycodone and provided it to her nurse. She is awaiting PT eval, and assuming they agree with this assessment she may be transferred [facility] to a custodial rehab. I discussed this plan with the attending neurosurgeon who is in agreement.
[2024-01-14 09:21] VITALS: BP 94/45; PULSE 67; O2SAT 92
--- NOTE | 2024-01-14 09:44 | MHC.CM.PN ---
Addendum entered by Sunni Cabrera RN 01/14/24 11:19: Bed offered and accepted by patient at [facility]. BLS transportation scheduled for 3pm. RN aware. Addendum entered by Sunni Cabrera RN 01/14/24 09:48: [facility]MM delivered. [facility] Additional referrals placed. Original Note: Patient is from home w/ 2 adult sons. She uses a cane and w/c for mobility PRN. Independent w/ ADL's. No services. PCP: Dr Norris Bee HCP: completed with patient, patient named son Ector as primary agent, copy placed in chart and uploaded to [employer] DP: PT rec STR. 1st choice is [facility] in [place], as patient has been in the past. No second choice. Referrals placed. Patient is medically cleared by surgical PA. CM will continue to follow.
[2024-01-14] MEDS: Acetaminophen 325 MG TABLET 975 MG PO (10:54)
[2024-01-14 11:22] LABS: Glucose, Whole Blood 196 mg/dL (60-115)
[2024-01-14 14:59] VITALS: BP 93/51; PULSE 77; RESP 18; TEMP 36.5; O2SAT 96
--- NOTE | 2024-01-14 17:48 | HO.POSTANES ---
Post Anesthesia Evaluation Post Anesthesia Evaluation Date of Service: 01/14/24 Vital Signs: Vital Signs Temp Pulse Resp BP Pulse Ox O2 Del Method 01/14/24 14:59 97.7 F 77 18 93/51 L 96 Room Air 01/14/24 09:21 67 94/45 L 92 01/14/24 07:49 98.1 F 67 17 94/45 L 92 Room Air Anesthesia: General Mental Status: Awake Pain Control: Satisfactory Nausea/Vomiting: None Hydration: Adequate Anesthesia-Related Issues: No Anes. Related Issues
== END 2024-01-14 16:45 | DRG 460 ==
LOC: HO.SSSA 08:29 → HO.S3 17:45
PROVIDERS: Neurological Surgery; Nurse Practitioner; Physician Assistant; Admitting Provider Physician Assistant; PCP Internal Medicine; Visit Provider Physician Assistant
PROC: 0SG00A0 Fusion of Lumbar Vertebral Joint with Interbody Fusion Device, Anterior Approach, Anterior Column, Open Approach (ICD-10-PCS; principal; 2024-01-13 10:50)
DX: M43.17 Spondylolisthesis, lumbosacral region (principal); E11.9 Type 2 diabetes mellitus without complications; M79.7 Fibromyalgia; Z79.4 Long term (current) use of insulin; Z79.84 Long term (current) use of oral hypoglycemic drugs; Z79.899 Other long term (current) drug therapy
CPT/HCPCS: 36415; 80048; 82565; 82947; 83036; 85027; 86850; 86900; 86901; 93005; 97162; C1713; C9290; J0131; J0665; J0736; J1100; J1170; J1200; J1885; J2250; J2405; J2704; J3010; J3371; L8699

== ENCOUNTER → 2024-01-13 08:24 | Outpatient (BNV) | payer OTHER, SELFPAY | PROVIDERS: Admitting Provider Physician Assistant; Visit Provider Neurological Surgery | DX: Z48.89 Encounter for other specified surgical aftercare (principal) | CPT/HCPCS: 20930; 22558; 22612; 22840; 22853; 99024; 99499 ==

== ENCOUNTER 2024-02-11 13:07 | Outpatient (AMB) | payer OTHER, SELFPAY ==
--- NOTE | 2024-02-11 13:15 | A.SPINEOV_ITS ---
Intake Intake Visit Reasons: 1st post op Intake Note: Ms. Garner is here today for 1st post op. 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 Allergies amoxicillin [From Augmentin] Allergy (Intermediate, Verified 12/29/23 12:11) Gastrointestinal Upset cefuroxime [From Ceftin] Allergy (Intermediate, Verified 12/29/23 12:11) Gastrointestinal Upset clavulanic acid [From Augmentin] Allergy (Intermediate, Verified 12/29/23 12:11) Gastrointestinal Upset vancomycin Allergy (Verified 01/13/24 09:25) Nausea and Vomiting sulfamethoxazole [From Bactrim] Adverse Reaction (Intermediate, Verified 12/26/23 10:19) Gastrointestinal Upset trimethoprim [From Bactrim] Adverse Reaction (Intermediate, Verified 12/26/23 10:19) Gastrointestinal Upset Assessment & Plan Assessment & Plan (1) Status post lumbar surgery: Code(s): Z98.890 - Other specified postprocedural states Plan Procedure: L4-5 OLIF Nima comes in today for her 1st postoperative visit. She reports she is overall satisfied with the surgery and feels much better than she did pre-operatively. The patient reports she is up walking around and completing the majority of her ADLs. She reports that she no longer suffers from her low back pain with shooting pains into her R leg. She does have some soreness of the bilateral anterior thighs. Unfortunately Nima does report that she had a very difficult time at rehab after discharge from the hospital. She states the facility she went to in [place] did not treat her well, and she site of multiple instances of how her care was compromised. Overall she did have a positive healing course and has had nearly complete resolution of her preoperative symptoms. No new neurological deficits. Patient is able to ambulate well, rises from a seated position without difficulty. Incision sites are closed, well healing, with no signs of drainage. We will follow-up with the patient in 6 weeks for her 2nd postoperative visit. At that time we will get x-rays to review with the patient. Sebastian Schaeffer MD,PhD [facility] Coding Level of Care Code Global (04839) Diagnoses Status post lumbar surgery Z98.890
== END 2024-02-11 13:32 | disposition home or self-care (01) ==
PROVIDERS: PCP Internal Medicine; Visit Provider Physician Assistant
DX: Z98.890 Other specified postprocedural states (principal)
CPT/HCPCS: 99024

== ENCOUNTER → 2024-02-11 13:07 | Outpatient (BNVA) | payer OTHER, SELFPAY | PROVIDERS: Visit Provider Physician Assistant | DX: Z98.890 Other specified postprocedural states (principal) | CPT/HCPCS: 99212 ==

== ENCOUNTER 2024-03-24 12:06 | Outpatient (REF) | payer OTHER, SELFPAY ==
--- NOTE | ~2024-03-24 | XR_ITS ---
EXAMINATION: XR LUMBOSACRAL SPINE WITH OBLIQUES CLINICAL INFORMATION: Postprocedural status. COMPARISON: January 13, 2024, June 20, 2023. TECHNIQUE: AP, lateral neutral, flexion and extension. FINDINGS: Redemonstration of posterior fixation with posterior pedicular screws, bilateral rods, and interbody device at L4-L5. Hardware appears intact. Substantial grade 1 anterolisthesis of L4 on L5 persists on flexion and extension views. Advanced degenerative changes with marked disc space narrowing redemonstrated at L5-S1. XR/XR lumbar spine 4V min IMPRESSION: 1. Redemonstration of posterior fixation with interbody device at L4-L5. Hardware appears intact. 2. Substantial grade 1 anterolisthesis of L4 on L5 persists on flexion and extension views.
== END 2024-03-24 12:07 | disposition home or self-care (01) ==
LOC: HO.HOSX 12:06
PROVIDERS: Visit Provider Physician Assistant
DX: Z48.89 Encounter for other specified surgical aftercare (principal)
CPT/HCPCS: 72110; 99212

== ENCOUNTER 2024-03-24 13:20 | Outpatient (AMB) | payer OTHER, SELFPAY ==
--- NOTE | 2024-03-24 12:55 | HO.SPINEOV ---
Intake Visit Reasons: 2nd post op with xrays Intake Note: Ms. Garner is here today for her 2nd post-op appointment. 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 Allergies amoxicillin [From Augmentin] Allergy (Intermediate, Verified 12/29/23 12:11) Gastrointestinal Upset cefuroxime [From Ceftin] Allergy (Intermediate, Verified 12/29/23 12:11) Gastrointestinal Upset clavulanic acid [From Augmentin] Allergy (Intermediate, Verified 12/29/23 12:11) Gastrointestinal Upset vancomycin Allergy (Verified 01/13/24 09:25) Nausea and Vomiting sulfamethoxazole [From Bactrim] Adverse Reaction (Intermediate, Verified 12/26/23 10:19) Gastrointestinal Upset trimethoprim [From Bactrim] Adverse Reaction (Intermediate, Verified 12/26/23 10:19) Gastrointestinal Upset Assessment & Plan Assessment & Plan (1) Status post lumbar surgery: Code(s): Z98.890 - Other specified postprocedural states Category: Medical Plan Procedure: L4-5 OLIF Nima comes in today for her 2nd postoperative visit. Her low back pain and right-sided radiculopathy has resolved. She does have some continued soreness of the bilateral anterior thighs, but this has been gradually improving. Overall she is very satisfied with her surgery and has been feeling better. She asked several questions regarding the postoperative healing course which I answered to the best of my ability. We reviewed the x-rays that she had completed today, which shows stable placement of her surgical construct with no changes from fluoroscopy. No new neurological deficits. Patient is able to ambulate well, rises from a seated position without difficulty. There is no need for continued routine follow up with Nima. She may be discharged as a patient. Sebastian Schaeffer MD,PhD [facility] Orders: Orders XR lumbar spine 4V min Today Z98.890 - Other specified postprocedural states Coding Level of Care Code Global (38775) Diagnoses Status post lumbar surgery Z98.890
== END 2024-03-24 14:00 | disposition home or self-care (01) ==
PROVIDERS: PCP Internal Medicine; Visit Provider Physician Assistant
DX: Z98.890 Other specified postprocedural states (principal)
CPT/HCPCS: 99024